=== PATIENT | female | born 1965 | race Caucasian/White ===

== ENCOUNTER 2017-08-31 06:09 | Day surgery (SDC) | payer OTHER ==
[~2017-08-31] VITALS: Ht 180.3 cm; Wt 155.1 kg
[~2017-08-31 06:09] MED LIST: DOXYCYCLINE PO; FOLI400 PO; IBUP800 PO; METTREX2.5 PO; PROBIOTIC1 EAC3 PO
[2017-08-31] MEDS ORDERED: MONT10T PO (06:51)
== END 2017-08-31 10:57 | disposition home or self-care (01) ==
LOC: ORSCMMR 06:09 → ORSCSDS 07:30 → ORD 07:30 → ORSCMMR 10:57
PROVIDERS: Student in an Organized Health Care Education/Training Program
PROC: 0QSN04Z Reposition Right Metatarsal with Internal Fixation Device, Open Approach (ICD-10-PCS; principal; 2017-08-31 07:30)
PROC: 0SNM0ZZ Release Right Metatarsal-Phalangeal Joint, Open Approach (ICD-10-PCS; principal; 2017-08-31 07:30)
DX: M20.41 Other hammer toe(s) (acquired), right foot (principal); M79.671 Pain in right foot; M24.20 Disorder of ligament, unspecified site; M77.41 Metatarsalgia, right foot; E66.01 Morbid (severe) obesity due to excess calories; Z68.42 Body mass index [BMI] 45.0-49.9, adult
CPT/HCPCS: C1713; J1100; J2001; J2250; J2405; J3010; J7120

== ENCOUNTER 2018-02-05 00:59 | Day surgery (SDC) | payer OTHER ==
[~2018-02-05 00:59] MED LIST changes: +MONT10T PO
== END 2018-02-05 22:37 | disposition home or self-care (01) ==
LOC: WOUND 00:59
DX: T81.31XA Disruption of external operation (surgical) wound, not elsewhere classified, initial encounter (principal); M79.675 Pain in left toe(s); M20.42 Other hammer toe(s) (acquired), left foot
CPT/HCPCS: G0463

== ENCOUNTER 2018-02-19 09:00 | Day surgery (SDC) | payer OTHER | END 2018-02-19 22:35 | disposition home or self-care (01) | LOC: WOUND 09:00 | DX: T81.31XD Disruption of external operation (surgical) wound, not elsewhere classified, subsequent encounter (principal); M79.675 Pain in left toe(s); M20.42 Other hammer toe(s) (acquired), left foot | CPT/HCPCS: G0463 ==

== ENCOUNTER 2018-02-26 09:00 | Day surgery (SDC) | payer OTHER | END 2018-02-26 22:38 | disposition home or self-care (01) | LOC: WOUND 09:00 | DX: T81.31XD Disruption of external operation (surgical) wound, not elsewhere classified, subsequent encounter (principal); M79.675 Pain in left toe(s); M20.42 Other hammer toe(s) (acquired), left foot; I10 Essential (primary) hypertension; M06.9 Rheumatoid arthritis, unspecified; R60.9 Edema, unspecified ==

== ENCOUNTER 2018-03-02 00:08 | Day surgery (SDC) | payer OTHER | END 2018-03-02 22:50 | disposition home or self-care (01) | LOC: WOUND 00:08 | DX: T81.31XD Disruption of external operation (surgical) wound, not elsewhere classified, subsequent encounter (principal); M79.675 Pain in left toe(s); M20.42 Other hammer toe(s) (acquired), left foot; I10 Essential (primary) hypertension; M06.9 Rheumatoid arthritis, unspecified; R60.9 Edema, unspecified ==

== ENCOUNTER 2018-03-05 00:43 | Day surgery (SDC) | payer OTHER | END 2018-03-05 22:54 | disposition home or self-care (01) | LOC: WOUND 00:43 | DX: T81.31XD Disruption of external operation (surgical) wound, not elsewhere classified, subsequent encounter (principal); M79.675 Pain in left toe(s); M20.42 Other hammer toe(s) (acquired), left foot; I10 Essential (primary) hypertension; M06.9 Rheumatoid arthritis, unspecified; R60.9 Edema, unspecified ==

== ENCOUNTER 2018-03-12 08:57 | Day surgery (SDC) | payer OTHER | END 2018-03-12 22:35 | disposition home or self-care (01) | LOC: WOUND 08:57 | DX: Z48.01 Encounter for change or removal of surgical wound dressing (principal); T81.31XA Disruption of external operation (surgical) wound, not elsewhere classified, initial encounter; M79.675 Pain in left toe(s); M20.42 Other hammer toe(s) (acquired), left foot; I10 Essential (primary) hypertension | CPT/HCPCS: G0463 ==

== ENCOUNTER → 2018-05-31 | Outpatient (CLI) | payer OTHER ==
[2018-05-31 13:00] LABS: BASOPHILS ABSOLUTE AUTO 0.02 K/mm3 (0.00-0.23); BASOPHILS PERCENT AUTO 0 % (0-2); EOSINOPHILS ABSOLUTE AUTO 0.24 K/mm3 (0.00-0.68); EOSINOPHILS PERCENT AUTO 4 % (0-6); Hematocrit 45.2 % (33.0-51.0); Hemoglobin 14.4 g/dL (11.5-16.0); IMMATURE GRAN ABSOLUTE AUTO 0.01 K/mm3 (0.00-0.10); IMMATURE GRAN PERCENT AUTO 0 % (0-1); LYMPHOCYTES ABSOLUTE AUTO 1.17 K/mm3 (0.84-5.20); LYMPHOCYTES PERCENT AUTO 19 % (21-46); MONOCYTES ABSOLUTE AUTO 0.55 K/mm3 (0.16-1.47); MONOCYTES PERCENT AUTO 9 % (4-13); Mean Corpuscular HGB 26.4 pg (26.0-34.0); Mean Corpuscular HGB Conc 31.9 g/dL (31.5-36.5); Mean Corpuscular Volume 83 fL (80-100); Mean Platelet Volume 10.6 fL (9.1-12.4); NEUTROPHILS ABSOLUTE AUTO 4.18 K/mm3 (1.96-9.15); NEUTROPHILS PERCENT AUTO 68 % (41-73); Platelet Count 238 K/mm3 (150-400); RDW Coefficient Variation 17.2 % (11.7-14.2); RDW Standard Deviation 49.7 fL (35.1-46.3); Red Blood Cell Count 5.45 M/mm3 (3.80-5.20); White Blood Cell Count 6.17 K/mm3 (4.00-11.30)
[2018-05-31 13:17] LABS: Alanine Aminotransfer (ALT/SGP 31 U/L (12-78); Alk Phos 80 U/L (40-126); Anion Gap 6 mmol/L (6-16); Aspartate Aminotrans (AST/SGOT 15 U/L (12-37); Bilirubin, Total 0.4 mg/dL (0.1-1.0); Blood Urea Nitrogen 20 mg/dL (8-24); Bun/Creatinine Ratio 19.6 (12.0-20.0); CO2, Blood 29 mmol/L (21-32); CPK Creatine Kinase 83 U/L (26-192); Calcium, Blood 9.3 mg/dL (8.5-10.1); Chloride, Blood 104 mmol/L (98-108); Creatinine, Blood 1.02 mg/dL (0.40-1.00); Globulin, Blood 4.2 g/dL (2.2-4.0); Glomerular Filtration Rate 57 (60-); Glucose, Blood 88 mg/dL (70-99); Potassium, Blood 4.1 mmol/L (3.5-5.5); Sodium, Blood 139 mmol/L (136-145); Thyroid Stimulating Hormone 1.499 uIU/mL (0.360-4.800); Total Protein, Blood 8.2 g/dL (6.4-8.2); Troponin I <0.017 ng/mL (0.000-0.040)
== END | disposition home or self-care (01) ==
LOC: LAB EV 12:17 → LAB SHORT 12:17
PROVIDERS: General Practice
DX: I48.91 Unspecified atrial fibrillation (principal); R53.83 Other fatigue; R53.81 Other malaise
CPT/HCPCS: 80053; 82550; 84439; 84443; 84484; 85025; 85379

== ENCOUNTER 2018-06-22 08:36 | Day surgery (SDC) | payer OTHER | END 2018-06-24 22:50 | disposition home or self-care (01) | LOC: MHTC 08:36 | DX: I48.0 Paroxysmal atrial fibrillation (principal) | CPT/HCPCS: 93005; 93010 ==

== ENCOUNTER 2020-12-30 10:39 | Day surgery (SDC) | payer OTHER ==
[~2020-12-30] VITALS: Ht 180.3 cm; Wt 123.5 kg
[~2020-12-30 10:39] MED LIST changes: +DOXY100 PO; +DULO60 PO; +IBU800 MG PO; +METO25ER PO; +MONT10T; +SULF500 PO; +Voltaren100 GM TOP; +ZYRTEC10 M1
[2020-12-30] MEDS ORDERED: Methotrexa25 MG/1 ML (11:35)
[2020-12-30] MEDS ORDERED: TOPI25 PO (11:41)
[2020-12-30] MEDS ORDERED: IMITREX100 MG PO (11:42)
[2020-12-30] MEDS ORDERED: Calcium Carbon500 MG PO (11:43)
[2020-12-30] MEDS ORDERED: MULVITA PO (11:43)
[2020-12-30] MEDS ORDERED: CALCIUM 1,0001 EACH PO (11:44)
--- NOTE | 2020-12-30 12:43 | NUR ---
12/30/20 1243 Libra Estrada 30 MG EPI USED TO SOAK PLEDGETS FOR PACKING PER ORDER
== END 2020-12-30 16:32 | disposition home or self-care (01) ==
LOC: ORSCSDS 10:39
PROVIDERS: Otolaryngology
PROC: 099S4ZZ Drainage of Right Frontal Sinus, Percutaneous Endoscopic Approach (ICD-10-PCS; principal; 2020-12-30 12:00)
PROC: 099X4ZZ Drainage of Left Sphenoid Sinus, Percutaneous Endoscopic Approach (ICD-10-PCS; principal; 2020-12-30 12:00)
PROC: 099U4ZZ Drainage of Right Ethmoid Sinus, Percutaneous Endoscopic Approach (ICD-10-PCS; principal; 2020-12-30 12:00)
PROC: 099Q4ZZ Drainage of Right Maxillary Sinus, Percutaneous Endoscopic Approach (ICD-10-PCS; principal; 2020-12-30 12:00)
PROC: 8E09XBZ Computer Assisted Procedure of Head and Neck Region (ICD-10-PCS; principal; 2020-12-30 12:00)
PROC: 099T4ZZ Drainage of Left Frontal Sinus, Percutaneous Endoscopic Approach (ICD-10-PCS; principal; 2020-12-30 12:00)
PROC: 099R4ZZ Drainage of Left Maxillary Sinus, Percutaneous Endoscopic Approach (ICD-10-PCS; principal; 2020-12-30 12:00)
PROC: 099V4ZZ Drainage of Left Ethmoid Sinus, Percutaneous Endoscopic Approach (ICD-10-PCS; principal; 2020-12-30 12:00)
PROC: 099W4ZZ Drainage of Right Sphenoid Sinus, Percutaneous Endoscopic Approach (ICD-10-PCS; principal; 2020-12-30 12:00)
PROC: 09SM4ZZ Reposition Nasal Septum, Percutaneous Endoscopic Approach (ICD-10-PCS; principal; 2020-12-30 12:00)
DX: J32.8 Other chronic sinusitis (principal); J34.2 Deviated nasal septum; I48.91 Unspecified atrial fibrillation; J45.909 Unspecified asthma, uncomplicated; Z87.891 Personal history of nicotine dependence; E66.01 Morbid (severe) obesity due to excess calories; Z68.41 Body mass index [BMI] 40.0-44.9, adult; Z79.899 Other long term (current) drug therapy
CPT/HCPCS: 82947; A9270; C2625; J0171; J1100; J1885; J2250; J2405; J2704; J3010; J7120

== ENCOUNTER 2021-06-13 21:31 | Emergency (ER) | payer OTHER ==
[~2021-06-13] VITALS: Ht 180.3 cm; Wt 127.5 kg
[~2021-06-13 21:31] MED LIST changes: +CALCIUM 1,0001 EACH PO; +Calcium Carbon500 MG PO; +IMITREX100 MG PO; +MULVITA PO; +Methotrexa25 MG/1 ML; +TOPI25 PO
== END 2021-06-14 00:15 | disposition home or self-care (01) ==
LOC: ER 21:31
DX: S06.0X0A Concussion without loss of consciousness, initial encounter (principal); M79.7 Fibromyalgia; G43.909 Migraine, unspecified, not intractable, without status migrainosus; Z88.6 Allergy status to analgesic agent; Z88.1 Allergy status to other antibiotic agents; Z88.5 Allergy status to narcotic agent; Z88.0 Allergy status to penicillin; Z79.899 Other long term (current) drug therapy; W22.03XA Walked into furniture, initial encounter; Y92.9 Unspecified place or not applicable
CPT/HCPCS: 70450; A9270

== ENCOUNTER 2021-07-22 08:11 | Day surgery (SDC) | payer OTHER ==
[~2021-07-22] VITALS: Ht 180.3 cm; Wt 125.5 kg
[~2021-07-22 08:11] MED LIST changes: +Carisoprodol350 MG PO; +DULO30 PO; +ENBREL50 MG/1 M2 SC; +MELO7.5 PO; +SUMA25 PO; +TOPI50 PO; +ZYRTEC10 M2 PO
[2021-07-22] MEDS ORDERED: TOPI25 PO (09:33)
--- NOTE | 2021-07-22 10:14 | NUR ---
Ambulatory in Day Surgery History, Chart, Medications and Allergies reviewed before start of procedure. Lungs clear T/O to Auscultation. Patient confirms NPO status and agrees with scheduled surgery. Pre-Op teaching done. Pt verbalizes understanding.
[2021-07-22 11:06] LABS: Bun/Creatinine Ratio 28.9 (12.0-20.0); Calcium, Blood 9.2 mg/dL (8.5-10.1); Creatinine, Blood 0.66 mg/dL (0.40-1.00); Potassium, Blood 5.2 mmol/L (3.5-5.5)
--- NOTE | 2021-07-22 17:51 | NUR ---
DISCHARGE SUMMARY PT A&OX4, VSS/RA, ANKIT PO, VOIDING WELL, AMB SBA TO BRP, PAIN MANAGED WITH NORCO 5 MG PO. DC INSTRUCTIONS PROVIDED. PT REP UNDERSTANDING THOSE INSTRUCTIONS. PT LEFT FLOOR WITH ALL PERSONAL POSSESSIONS INCLUDING DC PACKET, REP NARC SCRIPT FILLED AND PAIN MEDS AVAILABLE FOR HER AT HOME, TO GO HOME WITH . LEFT FLOOR VIA WC WITH MEDICAL INSURANCE CLAIMS PROCESSOR. IV DC'D.
== END 2021-07-22 17:37 | disposition home or self-care (01) ==
LOC: ORSCMMR 08:11 → ORD 09:45 → SURS 14:46 → ORSCMMR 17:37
PROVIDERS: Obstetrics & Gynecology
PROC: 0UT74ZZ Resection of Bilateral Fallopian Tubes, Percutaneous Endoscopic Approach (ICD-10-PCS; principal; 2021-07-22 09:45)
PROC: 8E0W4CZ Robotic Assisted Procedure of Trunk Region, Percutaneous Endoscopic Approach (ICD-10-PCS; principal; 2021-07-22 09:45)
PROC: 0UT94ZZ Resection of Uterus, Percutaneous Endoscopic Approach (ICD-10-PCS; principal; 2021-07-22 09:45)
DX: N81.4 Uterovaginal prolapse, unspecified (principal); D25.9 Leiomyoma of uterus, unspecified; N81.6 Rectocele; Z87.891 Personal history of nicotine dependence; J45.909 Unspecified asthma, uncomplicated; I48.91 Unspecified atrial fibrillation; E66.9 Obesity, unspecified; Z68.38 Body mass index [BMI] 38.0-38.9, adult; Z79.899 Other long term (current) drug therapy
CPT/HCPCS: 58571; S2900; 80048; 88307; A9270; J1100; J1580; J1885; J2250; J2370; J2405; J2704; J3010; J7120

== ENCOUNTER 2022-09-12 06:33 | Day surgery (SDC) | payer OTHER ==
[~2022-09-12] VITALS: Ht 180.3 cm; Wt 138.8 kg
[~2022-09-12 06:33] MED LIST changes: +ALPR.5 PO; +CIPR500 PO; +ONDA4 PO; +SULTRIDS PO; +VAGIFEM10 MCG VAG
[2022-09-12] MEDS ORDERED: SULTRIDS PO (07:16)
[2022-09-12] MEDS ORDERED: ZYRTEC10 M2 PO (07:17)
[2022-09-12] MEDS ORDERED: DELTASONE20 MG (07:17)
[2022-09-12] MEDS ORDERED: AZELASTINE137 MCG/01 (07:18)
[2022-09-12 10:11] VITALS: BP 116/68
--- NOTE | 2022-09-12 10:46 | NUR ---
09/12/22 1046 Juan Alberto IN SDU, PT'S MONITOR SHOWED BREIF DROPS IN HEART RATE TO LOW 40'S. THREE LEAD ECG SHOWED PVC WITH BIGEMINY. PT DENIED CARDIAC SYMPTOMS INCLUDING CHEST PAIN, DIZZINESS, AND SOB--AND NONE WERE NOTED. DR. MENDOZA WAS CONSULTED AND APPROVED DISCHARGE. DR. MENDOZA EDUCATED PT REGARDING PVCS AND WHEN TO CONSULT A PHYSICIAN.
== END 2022-09-12 11:20 | disposition home or self-care (01) ==
LOC: ORSCSDS 06:33
PROVIDERS: Otolaryngology
PROC: 09BU4ZZ Excision of Right Ethmoid Sinus, Percutaneous Endoscopic Approach (ICD-10-PCS; principal; 2022-09-12 08:00)
PROC: 09BV4ZZ Excision of Left Ethmoid Sinus, Percutaneous Endoscopic Approach (ICD-10-PCS; principal; 2022-09-12 08:00)
DX: J32.4 Chronic pansinusitis (principal); J32.1 Chronic frontal sinusitis; J32.2 Chronic ethmoidal sinusitis; J45.909 Unspecified asthma, uncomplicated; F32.A Depression, unspecified; M06.9 Rheumatoid arthritis, unspecified; I48.91 Unspecified atrial fibrillation; Z79.899 Other long term (current) drug therapy
CPT/HCPCS: A9270; C2625; J0171; J1100; J2250; J2371; J2405; J2704; J3010; J7120

== ENCOUNTER 2023-03-17 09:30 | Emergency (ER) | payer OTHER ==
[~2023-03-17] VITALS: Ht 177.8 cm; Wt 117.9 kg
[~2023-03-17 09:30] MED LIST changes: +AZELASTINE137 MCG/01; +DELTASONE20 MG
[2023-03-17 10:14] LABS: BASOPHILS ABSOLUTE AUTO 0.04 K/mm3 (0.00-0.23); BASOPHILS PERCENT AUTO 1 % (0-2); EOSINOPHILS ABSOLUTE AUTO 0.13 K/mm3 (0.00-0.68); EOSINOPHILS PERCENT AUTO 2 % (0-6); Hemoglobin 13.9 g/dL (11.5-16.0); IMMATURE GRAN ABSOLUTE AUTO 0.02 K/mm3 (0.00-0.10); IMMATURE GRAN PERCENT AUTO 0 % (0-1); LYMPHOCYTES ABSOLUTE AUTO 2.17 K/mm3 (0.84-5.20); LYMPHOCYTES PERCENT AUTO 33 % (21-46); MONOCYTES ABSOLUTE AUTO 0.75 K/mm3 (0.16-1.47); MONOCYTES PERCENT AUTO 11 % (4-13); Mean Corpuscular HGB 25.5 pg (26.0-34.0); Mean Corpuscular HGB Conc 31.6 g/dL (31.5-36.5); Mean Corpuscular Volume 81 fL (80-100); Mean Platelet Volume 9.4 fL (9.1-12.4); NEUTROPHILS ABSOLUTE AUTO 3.52 K/mm3 (1.96-9.15); NEUTROPHILS PERCENT AUTO 53 % (41-73); Platelet Count 261 K/mm3 (150-400); RDW Coefficient Variation 17.1 % (11.7-14.2); RDW Standard Deviation 49.9 fL (35.1-46.3); Red Blood Cell Count 5.45 M/mm3 (3.80-5.20); White Blood Cell Count 6.63 K/mm3 (4.00-11.30)
[2023-03-17] MEDS ORDERED: CELECOXIB50 MG PO (10:24)
[2023-03-17] MEDS ORDERED: TIZANIDINE HCL6 MG PO (10:24)
[2023-03-17] MEDS ORDERED: SULFAMETHOXAZO1 EAC1 PO (10:24)
[2023-03-17] MEDS ORDERED: ENBREL SUR50 MG/1 M1 SC (10:24)
[2023-03-17] MEDS ORDERED: PRED20 PO (10:24)
[2023-03-17 10:25] LABS: Albumin, Blood 3.8 g/dL (3.4-5.0); Bilirubin, Total 0.4 mg/dL (0.1-1.0); Bun/Creatinine Ratio 28.4 (12.0-20.0); Calcium, Blood 9.5 mg/dL (8.5-10.1); Creatinine, Blood 0.81 mg/dL (0.40-1.00); Globulin, Blood 3.7 g/dL (2.2-4.0); Magnesium, Blood 2.1 mg/dL (1.6-2.4); Total Protein, Blood 7.5 g/dL (6.4-8.2)
[2023-03-17 12:45] VITALS: BP 117/86
== END 2023-03-17 13:08 | disposition home or self-care (01) ==
LOC: ER 09:30
PROVIDERS: Emergency Medicine
DX: R07.9 Chest pain, unspecified (principal); R42 Dizziness and giddiness; R00.2 Palpitations; R55 Syncope and collapse; G43.909 Migraine, unspecified, not intractable, without status migrainosus; Z88.0 Allergy status to penicillin; Z91.048 Other nonmedicinal substance allergy status; Z88.1 Allergy status to other antibiotic agents; Z88.5 Allergy status to narcotic agent; Z79.899 Other long term (current) drug therapy; Z79.52 Long term (current) use of systemic steroids
CPT/HCPCS: 71045; 71260; 80053; 83735; 83880; 84484; 85025; 85379; 93005; 93010; 99285-25; Q9967

== ENCOUNTER 2024-07-27 17:13 | Emergency (ER) | payer OTHER ==
[~2024-07-27] VITALS: Ht 167.6 cm; Wt 127.0 kg
[~2024-07-27 17:13] MED LIST changes: +CELECOXIB50 MG PO; +ENBREL SUR50 MG/1 M1 SC; +PRED20 PO; +SULFAMETHOXAZO1 EAC1 PO; +TIZANIDINE HCL6 MG PO
[2024-07-27] MEDS ORDERED: FentaNYL Citrate 50 MCG/ML 2 ML Injection IV ONE ×3 (17:50→19:55)
[2024-07-27] MEDS ORDERED: NS 1,000 ML IV ONE (19:14)
[2024-07-27] MEDS ORDERED: Propofol 10mg/ml 20 ml Vial (Procedural) IV SCH (19:15)
[2024-07-27 20:05] VITALS: BP 116/84
== END 2024-07-27 21:37 | disposition home or self-care (01) ==
LOC: ER 17:13
DX: T84.020A Dislocation of internal right hip prosthesis, initial encounter (principal); Z88.0 Allergy status to penicillin; Z91.040 Latex allergy status; Z88.1 Allergy status to other antibiotic agents; Z88.5 Allergy status to narcotic agent; Z96.641 Presence of right artificial hip joint; X58.XXXA Exposure to other specified factors, initial encounter
CPT/HCPCS: 27265; 73501; 73502; 96374-59; 96376-59; 99152; 99284-25; J2704; J3010; J7030